=== PATIENT | male | born 1935 | race Caucasian/White ===

== ENCOUNTER 2017-04-22 04:51 | Inpatient (IN) | payer OTHER ==
[2017-03-30 10:18] VITALS: BMI 23.0
--- NOTE | 2017-03-30 11:08 | PAT Medication Instructions ---
Service Date Mar 30, 2017. Current Home Medication List Amlodipine (Norvasc), 5 MG PO QAM Aspirin (Aspirin Ec), 81 MG PO QAM Atorvastatin (Lipitor), 40 MG PO HS Carvedilol (Coreg), 25 MG PO BID Clopidogrel (Plavix), 75 MG PO HS Doxazosin Mesylate (Cardura), 1 TAB PO HS Polysaccharide Iron Complex (Ferrex 150), 150 MG PO HS [Folic Acid], 400 MCG PO QAM [Levothyroxine], 1 TAB PO QAM Medication Instructions For Your Scheduled Surgery - Check with surgeon/airplane cabin attendant/vascular for instructions (in order for spinal anesthesia, need to be off plavix 7 days prior to surgery; please check with airplane cabin attendant/vascular for instructions) Clopidogrel (Plavix), 75 MG PO HS - Hold the following medications the morning of surgery: [Folic Acid], 400 MCG PO QAM - Take the following medications the morning of surgery with a sip of water: [Levothyroxine], 1 TAB PO QAM Carvedilol (Coreg), 25 MG PO BID Amlodipine (Norvasc), 5 MG PO QAM Aspirin (Aspirin Ec), 81 MG PO QAM (okay to continue per surgeon) - Take the following medications as scheduled the night before surgery: Doxazosin Mesylate (Cardura), 1 TAB PO HS Polysaccharide Iron Complex (Ferrex 150), 150 MG PO HS Atorvastatin (Lipitor), 40 MG PO HS Carvedilol (Coreg), 25 MG PO BID If you have any questions please call us at [phone] or [phone] or [phone]
--- NOTE | 2017-03-30 11:51 | DIAGNOSTIC IMAGING REPORT ---
CHEST PREADMISSION(PA/LAT) CLINICAL HISTORY: Preoperative evaluation. COMPARISON STUDY: Chest radiograph July 14, 2006. FINDINGS: A dual lead left subclavian pacemaker is in place. There are median sternotomy wires. Cardiac size is normal. There is no evidence of pulmonary edema. There is no pneumothorax or pleural effusion. An 8 mm nodular density projects over the right lower lung. This was not evident on prior exam. Lower lung interstitial thickening is most evident within the left lower lung. There is a possible 1.4 cm right lower lung nodule. This may be artifactual. There is suspected underlying emphysema with mild lung hyperexpansion. Aortic endovascular stent graft is noted on lateral projection. IMPRESSION: 1. No acute cardiopulmonary findings. 2. A few equivocal right lung nodules. A follow-up nonemergent chest CT is recommended to determine whether these are artifactual or reflect pulmonary nodules. 3. Suspected underlying emphysema and possible interstitial lung disease. Electronically signed by: Shiraz Hernandez M.D. 03/30/2017 11:50 AM Dictated Date/Time: 03/30/2017 11:45 AM
[2017-03-30 12:04] LABS: COMPLETE YES; EOS % 2.1 %; HEMATOCRIT 33.2 % (42-52); IG% 0.5 %; LYMPH % 20.7 %; LYMPH ABS # 0.89 K/uL (1.2-3.4); MEAN CELL VOLUME 89.7 fL (80-100); MEAN CORPUSCULAR HEMOGLOBIN 28.9 pg (25-34); MEAN CORPUSCULAR HGB CONC 32.2 g/dl (32-36); MEAN PLATELET VOLUME 8.7 fL (7.4-10.4); MONO % 5.3 %; NEUT % 71.4 %; PLATELET COUNT 164 K/uL (130-400)
[2017-03-30 12:13] LABS: INR 1.1 (0.9-1.1); PARTIAL THROMBOPLASTIN RATIO 1.1; PROTHROMBIN TIME (PATIENT) 11.3 SECONDS (9.0-12.0)
[2017-03-30 12:34] LABS: CALCIUM 8.7 mg/dl (8.5-10.1); CREATININE 1.4 mg/dl (0.60-1.40); POTASSIUM 4.5 mmol/L (3.5-5.1)
[2017-03-30 12:37] LABS: ESTIMATED AVERAGE GLUCOSE 114 mg/dl; HA1C FLAG Normal (Normal)
[2017-03-30 13:55] LABS: URINE APPEARANCE CLEAR (CLEAR); URINE BILIRUBIN NEG (NEG); URINE COLOR DK YELLOW; URINE NITRITE NEG (NEG); URINE PH 5.5 (4.5-7.5); URINE SPECIFIC GRAVITY 1.023 (1.000-1.030); UROBILINOGEN NEG (NEG)
[2017-03-30 14:07] LABS: MANUAL MICROSCOPIC REQUIRED? NO; REVIEW REQ? NO
--- NOTE | 2017-03-30 18:22 | HISTORY & PHYSICAL EXAMINATION ---
DATE OF ADMISSION: 04/22/2017 PROCEDURE: Left knee replacement. HISTORY OF PRESENT ILLNESS: The patient is an 82-year-old male who presents for preoperative evaluation prior to left knee replacement. He states he is having pain in this knee for several years now which gradually worsened, it has now gone to the point where is affecting his daily activities including walking, standing, going up and down steps. He has tried previous cortisone injection with minimal relief. He also ambulates with a cane and/or a walker at times, he has done physical therapy without relief. At this point in time, he has failed conservative measures and would like to proceed with a left knee replacement. He had right knee replaced approximately 8 years ago and is doing well. PAST MEDICAL HISTORY: 1. Coronary artery disease with his last catheterization in November 2015 at [facility] showing CAD and subsequently sent for bypass surgery. He has since been seen and evaluated by his laborer high density press and has been cleared for upcoming surgery. 2. Carotid artery stenosis status post carotid endarterectomy. 3. Has a history of a pacemaker. 4. BPH. 5. History of basal cell carcinoma of the scalp and nose. 6. Abdominal aneurysm. 7. COPD. 8. Hypertension. 9. GERD. 10. High cholesterol. 11. History of renal insufficiency. ALLERGIES: No known drug allergies. CURRENT MEDICATIONS: 1. Amlodipine 5 mg daily. 2. Aspirin 81 mg daily. 3. Lipitor 40 mg daily. 4. Plavix 75 mg daily. 5. Cardura 2 mg daily. 6. Folic acid 400 mcg daily. 7. Iron 65 mg daily. PAST SURGICAL HISTORY: As outlined above. FAMILY HISTORY: 1. Siblings with heart disease. 2. History of stroke. 3. Emphysema, biological father. 4. Skin cancer, mother. SOCIAL HISTORY: The patient is retired and lives in a 1-lupe home with his . REVIEW OF SYSTEMS: Otherwise negative. Please see HPI for pertinent positives. PHYSICAL EXAMINATION: GENERAL: Pleasant 82-year-old male in no acute distress, alert and oriented x3. VITAL SIGNS: Blood pressure is 100/60, pulse 62, weight is 170 pounds, and height is 5 foot 11-1/2 inches. HEENT: Normocephalic, atraumatic. CARDIAC: Normal rate and rhythm. LUNGS: Clear to auscultation without rales or wheeze. ABDOMEN: Soft, nontender. Bowel sounds present. EXTREMITIES: Left lower extremity neurovascularly intact. Calves are soft and nontender. DP pulse +2. Demonstrates good quad tone. Straight leg raise without lag. There is no erythema or warmth. Overall has varus alignment. Positive crepitation with motion, range of motion is 0/5/110. Knee is otherwise ligamentously stable. IMAGING: Reviewed of the left knee shows findings consistent with end-stage DJD, has complete loss of joint space of the medial compartment with bone on bone changes including subchondral sclerosis and osteophyte formation noted, moderate chondrocalcinosis of the lateral compartment. IMPRESSION: 1. Left knee degenerative joint disease. 2. Past medical history as outlined above. In particular, his cardiac status per his laborer high density press is stable and no ongoing clinical anginal symptoms and has a preserved left ventricular systolic function and is being considered low risk for a left total knee replacement. PLAN: We will resume his Plavix postoperatively along with aspirin. Would like to be discharged home with home health therapy followed by outpatient therapy. Will also obtain clearance from his physician in [place] who is monitoring his abdominal aneurysm. The patient otherwise has no other questions or concerns. NIURKA
[2017-04-22] VITALS (12 sets, daily range): BP systolic 97–127; BP diastolic 61–78; PULSE 59–72; TEMP 36.4–37.2; O2SAT 84–99; Ht 180.3 cm; Wt 77.2 kg
[~2017-04-22] VITALS: Ht 180.3 cm; Wt 77.2 kg
[~2017-04-22 04:51] MED LIST: AMLO-110 PO; ASPI81TA28 PO; ATOR-24 PO; CARV25TA2 PO; CLOP1TAB15 PO; DOXA2TAB PO; FOLIC ACID PO; LEVOTHYROXINE PO; POLY150C4 PO
[2017-04-22] MEDS ORDERED: LACTATED RINGER'S 1000ML 500 ML IV ONE (06:00)
[2017-04-22] MEDS ORDERED: LACTATED RINGER'S 1000ML 1,000 ML IV SCH (06:00)
[2017-04-22] MEDS ORDERED: GABAPENTIN 300 MG CAP PO SCH (06:00)
[2017-04-22] MEDS ORDERED: CeleBREX 200 MG CAP PO SCH (06:00)
[2017-04-22] MEDS ORDERED: LACTATED RINGER'S 1000ML IV SCH (06:00)
[2017-04-22] MEDS ORDERED: ACETAMINOPHEN 500 MG TAB PO SCH (06:00)
[2017-04-22] MEDS ORDERED: DEXAMETHASONE 4 MG TAB PO SCH (06:00)
[2017-04-22] MEDS ORDERED: CEFAZOLIN 2000 MG/60 ML D5W 60 ML IV SCH (06:00)
[2017-04-22] MEDS ORDERED: ROPIVACAINE 5MG/ML 30 ML 150 MG, BUPIVACAINE/EPINEPHR 0.5% MPF 30 ML, KETOROLAC TROMETH... INFIL SCH ×7 (06:00)
[2017-04-22] MEDS ORDERED: FAMOTIDINE 20 MG TAB PO SCH (06:00)
[2017-04-22] MEDS ORDERED: METOCLOPRAMIDE HCL 10 MG TAB PO SCH (06:00)
[2017-04-22] MEDS ORDERED: LEVO25TA5 PO (06:01)
[2017-04-22] MEDS ORDERED: BUPIVACAINE 0.5 % 5 MG/1 ML PF 10ML VIAL ONE (06:24)
[2017-04-22] MEDS ORDERED: BUPIVACAINE 0.25% 30 ML VIAL ONE (06:24)
[2017-04-22] MEDS ORDERED: ORTHO JOINT ANESTHETIC ONE (06:33)
[2017-04-22] MEDS ORDERED: POVIDONE-IODINE OP SOLN 30 ML BTL ONE (06:33)
[2017-04-22] MEDS ORDERED: BACITRACIN 50000 UNIT VIAL ONE (06:33)
[2017-04-22] MEDS ORDERED: MIDAZOLAM HCL 1 MG/ML 2ML VIAL ONE (06:53)
[2017-04-22] MEDS ORDERED: FENTANYL CITRATE INJ 50 MCG/1 ML 2 ML VIAL ONE ×2 (06:53→08:30)
--- NOTE | 2017-04-22 06:58 | History & Physical Bridge Note ---
H&P Re-Evaluation Bridge Note: I have examined the patient, reviewed the History & Physical and in the interval since the performance of the History & Physical I have noted the following changes of clinical significance: No changes noted
[2017-04-22] MEDS ORDERED: ATROPINE SULFATE 0.1 MG/ML 5ML SYR IV PRN (07:45)
[2017-04-22] MEDS ORDERED: ONDANSETRON INJ 2 MG/ML 2 ML VIAL IV PRN ×2 (07:45→09:00)
[2017-04-22] MEDS ORDERED: FENTANYL CITRATE INJ 50 MCG/1 ML 2 ML VIAL IV PRN (07:45)
[2017-04-22] MEDS ORDERED: EpHEDrine SULFATE INJ 50 MG/ML AMP IV PRN (07:45)
[2017-04-22] MEDS ORDERED: PHENYLEPHRINE 100MCG/ML 5ML SYR ONE (08:03)
--- NOTE | 2017-04-22 08:13 | [facility] Operative Report ---
Operative Report Operative Date Apr 22, 2017. Pre-Operative Diagnosis Left Knee Degenerative Joint Disease Post-Operative Diagnosis Left Knee Degenerative Joint Disease Procedure(s) Performed Left Total Knee Arthroplasty utilizing Marquez [employer] Nephew journey 2 nonlocked total knee arthroplasty size 6 femur 6 tibia 11 Татьяна 32 oval patella Surgeon Bryce Jig And Fixture Repairer Surgeon(s) Vimal Resendez PA-C Estimated Blood Loss 5cc Findings Severe end-stage DJD with varus alignment left knee Nourse wants to conservative therapy Specimens A: Left Knee Bone and Tissue Complication(s) None Disposition Recovery Room / PACU Indications Patient been Nourse wants to conservative therapy is severe end-stage 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 with [id number] changes is failed conservative management presents today for left total knee arthroplastyAfter proper prepping and draping of the left lower extremity anterior midline incision was made over the region of the extensor extensor mechanism after meticulous hemostasis was obtained and maintained in subcutaneous tissues a medial parapatellar incision was made The patella was subluxed lateralward the medial lateral gutter were cleaned from any hypertrophic synovitis and scar tissue of the distal femoral block was placed and the distal femoral osteotomy cut was made subsequently the chamfers anterior and posterior osteotomy cuts were made utilizing the 4-in-1 block the tibia was subsequently subluxed anteriorward medial and ateral meniscal remnants were excised in their entirety remnants of the anterior and posterior cruciate ligaments were excised in their entirety excellent exposure of the proximal tibia was obtained the tibial osteotomy guide was placed on the proximal tibial osteotomy cut was made once again the knee was irrigated with copious amounts of sterile saline solution the patella was subsequently everted lateralward thickened scar tissue around the patella was removed the patella was subsequently cut utilizing a freehand technique and was drilled prepared for final preparation and placement of patella socially flexion-extension gaps were checked and the equal and symmetric trials were placed to the appropriate femoral and tibial trials with poly-spacer being placed for equal flexion and extension gaps and full range of motion including extension to 0 and flexion to 140 the trial components after having been taken to recovery range of motion was subsequently removed meticulous hemostasis was obtained and maintained subsequently a knee block injection of joint cocktail including ropivacaine 0.5 % 150 mg. Bupivacaine 0.5% epinephrine 1-200,030 mL's toradol 30 mg dexamethasone 4 mg ketamine 10 mg clonidine 100 micrograms normal saline solution 30 mg was infiltrated into the soft tissues of the posterior knee medial lateral gutters and periosteal synovium special attention was paid to protect neurovascular structures at all times subsequently trial components having been removed the knee was irrigated with sterile saline solution. debris was removed the proximal tibia was subsequently prepared and was made ready for the placement of the tibial component tibial component was also cemented and tamped into position the femoral component was subsequently placed and cemented in the position the patellar component was subsequently cemented in position because hemostasis once again obtained and maintained wound having been thoroughly irrigated with debridement and debridement lavage was performed as well as a medial parapatellar incision closed with #1 Vicryl in interrupted fashion subcutaneous was closed with #2 Vicryl skin was closed with skin clips. PA-C was necessary for prepping and drapping as well as wound closure of deep fascia Sub cutaneous tissue and skin and was necessary for the case. A sterile compressive dressing was placed patient was taken to recovery in stable condition of report dictated by Byrce I attest to the content of the Intraoperative Record and any orders documented therein. Any exceptions are noted below. I attest to the content of the Intraoperative Record and any orders documented therein. Any exceptions are noted below.
[2017-04-22] MEDS ORDERED: SOD PHOSPHATE/SOD BIPHOSPHATE ENEMA 132 ML BTL PR PRN (09:00)
[2017-04-22] MEDS ORDERED: ALUMINUM/MAGNESIUM/SIMETH (MAALOX MAX) 30 ML UDC PO PRN (09:00)
[2017-04-22] MEDS ORDERED: BISACODYL 10 MG SUPP PR PRN (09:00)
[2017-04-22] MEDS ORDERED: MAGNESIUM HYDROXIDE SUSP 30 ML UDC PO PRN (09:00)
[2017-04-22] MEDS ORDERED: MoRPHine SULFATE 2 MG/ML CARP IV PRN (09:00)
--- NOTE | 2017-04-22 09:40 | DIAGNOSTIC IMAGING REPORT ---
LEFT KNEE 2 VIEWS History: Left total knee arthroplasty. Degenerative arthritis. Postop. FINDINGS: The patient is status post a left total knee arthroplasty. The hardware is intact. No fracture or dislocation. Surgical drains are in place. IMPRESSION: Left total knee arthroplasty. No evidence for hardware complication. Electronically signed by: Clayton Tomlin M.D. 04/22/2017 9:38 AM Dictated Date/Time: 04/22/2017 9:37 AM
--- NOTE | 2017-04-22 10:38 | Anesthesiology Progress Note ---
Anesthesia Post Op Note Date & Time Apr 22, 2017 at 10:37 Vital Signs Pain Intensity: 0 Vital Signs Past 12 Hours Date Time Temp Pulse Resp B/P (MAP) Pulse Ox O2 Delivery O2 Flow Rate FiO2 04/22/17 10:32 61 12 04/22/17 10:32 61 12 96 04/22/17 10:31 96/63 04/22/17 10:27 62 12 04/22/17 10:27 61 12 94 04/22/17 10:26 93/58 04/22/17 10:22 64 13 94 04/22/17 10:22 63 13 04/22/17 10:21 101/59 04/22/17 10:17 62 12 04/22/17 10:17 63 12 95 04/22/17 10:16 61 12 04/22/17 10:16 61 12 105/62 91 04/22/17 10:11 60 13 04/22/17 10:11 60 13 103/63 96 04/22/17 10:06 70 04/22/17 10:06 70 20 106/58 91 04/22/17 10:01 63 20 104/60 92 04/22/17 10:01 65 04/22/17 09:56 68 04/22/17 09:56 68 20 101/59 96 04/22/17 09:51 65 17 04/22/17 09:51 66 17 111/59 90 04/22/17 09:50 36.8 04/22/17 09:46 87/58 04/22/17 09:45 60 20 04/22/17 09:45 59 20 95 04/22/17 09:41 103/54 04/22/17 09:40 62 22 04/22/17 09:40 62 22 95 04/22/17 09:36 101/58 04/22/17 09:35 62 19 95 04/22/17 09:35 62 19 04/22/17 09:31 102/64 04/22/17 09:30 63 22 04/22/17 09:30 62 22 98 04/22/17 09:26 109/58 04/22/17 09:25 65 23 04/22/17 09:25 65 23 95 04/22/17 09:21 103/62 04/22/17 09:20 Nasal Cannula 3 04/22/17 09:20 63 21 94 04/22/17 09:20 62 21 04/22/17 09:16 100/60 04/22/17 09:15 61 21 96 04/22/17 09:15 62 21 04/22/17 09:11 110/59 04/22/17 09:10 64 23 04/22/17 09:10 64 23 97 04/22/17 09:06 101/59 04/22/17 09:05 63 16 04/22/17 09:05 63 16 96 04/22/17 09:01 118/63 04/22/17 09:00 65 20 97 04/22/17 09:00 64 04/22/17 08:59 110/61 04/22/17 08:50 36.5 62 14 107/60 95 Oxymask 10 04/22/17 05:45 36.5 66 18 123/75 95 Room Air Notes Mental Status: alert / awake / arousable, participated in evaluation Pt Amnestic to Procedure: Yes Nausea / Vomiting: adequately controlled Pain: adequately controlled Airway Patency, RR, SpO2: stable & adequate BP & HR: stable & adequate Hydration State: stable & adequate Neuraxial Anesthesia: was administered, sensory block is resolving Anesthetic Complications: no major complications apparent
[2017-04-22] MEDS ORDERED: MoRPHine SULFATE 4 MG/ML 1 ML CARP\\VIAL IV PRN (11:15)
[2017-04-22] MEDS ORDERED: MoRPHine SULFATE 10 MG/ML CARP/VIAL IV PRN (11:15)
[2017-04-22] MEDS: D5W AND 1/2NSS + 20MEQ KCL 1,000 ML IV SCH ×2 (11:28→20:43)
[2017-04-22] MEDS: CARVEDILOL 25 MG TAB PO SCH ×2 (11:29→20:56)
[2017-04-22] MEDS: OXYCODONE HCL 10 MG TABCR (OXYCONTIN) PO SCH ×2 (11:36→20:51)
[2017-04-22] MEDS: MULTIVITAMIN TAB PO SCH (11:36)
[2017-04-22] MEDS: PANTOprazole SOD 40 MG TAB PO SCH (11:37)
[2017-04-22] MEDS: FoLIC ACID TAB 400 MCG TAB PO SCH (11:37)
[2017-04-22] MEDS: DOCUSATE SODIUM 100 MG CAP PO SCH ×2 (11:37→20:56)
[2017-04-22] MEDS: ASPIRIN 81 MG ECTAB PO SCH ×2 (11:37→20:56)
--- NOTE | 2017-04-22 13:30 | Cardiology Consultation ---
Cardiology Consultation Date of Consultation: Apr 22, 2017. Requesting Physician: Dr. Wu Reason for Consultation: Pacemaker, coronary artery disease Pt evaluation today including: conversation w/ patient, physical exam, lab review, review of studies, review of inpatient medication list History of Present Illness This is a very pleasant 82-year-old gentleman who has a history of heart block ( according to him, I don't have much in way of records) for which she required a pacemaker around 2004. He describes that as being 2-1 heart block. He had the pacemaker replaced several years ago, he doesn't remember exactly when. He has had no difficulty with it. He also has a history of coronary artery disease, he does not recall having any symptoms prior to a recommendation to have a nuclear stress test done which showed significant disease and he went on to have catheterization followed by coronary bypass surgery in December 2015. He denies having angina at that time and has had none since. He also has carotid disease and has had a carotid endarterectomy. He is admitted now following left knee replacement. He is in bed but has no complaints of chest discomfort, shortness of breath or palpitations. He has minimal knee discomfort. Prior to surgery he was maintained on aspirin and clopidogrel, as well as atorvastatin and some other medications for hypertension. Past Medical/Surgical History Hypertension Hyperlipidemia Carotid disease Coronary artery disease AV block DJD History of carotid surgery History of pacemaker implantation History of bypass surgery Social History Smoking Status: Former Smoker History of Alcohol Use: No Review of Systems Constitutional: No fever, No weight loss, No weakness Respiratory: No cough, No wheezing, No shortness of breath, No dyspnea on exertion Cardiac: No chest pain, No orthopnea, No PND, No edema, No palpitations Abdomen: No pain, No nausea, No vomiting, No diarrhea, No GI bleeding Male : No urinary frequency, No nocturia more than once/night, No slowing stream, No sexual dysfunction Neurologic: No paralysis, No weakness, No numbness/tingling, No balance problems Heme: No abnormal bleeding/bruising, No clotting problems Endo: No fatigue Skin: No problem reported Minimal knee pain post surgery All Other Systems: Reviewed and Negative Allergies Coded Allergies: No Known Allergies (Verified , 04/22/17) Medications Current Inpatient Medications Medications (Trade) Dose Ordered Sig/Estephania Route Start Time Stop Time Status Last Admin Dose Admin Lactated Ringer's 1,000 ml @ 15 mls/hr Q24H IV 04/22/17 06:00 04/23/17 05:59 04/22/17 05:59 15 MLS/HR Lactated Ringer's 1,000 ml @ 60 mls/hr [id number] IV 04/22/17 06:00 04/22/17 22:39 Cefazolin Sodium 60 ml @ 100 mls/hr PREOP IV 04/22/17 06:00 04/22/17 18:00 04/22/17 07:05 100 MLS/HR Acetaminophen (Tylenol Tab) 1,000 mg PREOP PO 04/22/17 06:00 04/22/17 18:00 04/22/17 06:11 1,000 MG Celecoxib (CeleBREX CAP) 200 mg PREOP PO 04/22/17 06:00 04/22/17 18:00 04/22/17 06:10 200 MG Dexamethasone (Decadron Tab) 8 mg PREOP PO 04/22/17 06:00 04/22/17 18:00 04/22/17 06:10 8 MG Famotidine (Pepcid Tab) 20 mg PREOP PO 04/22/17 06:00 04/22/17 18:00 04/22/17 06:10 20 MG Gabapentin (Neurontin Cap) 300 mg PREOP PO 04/22/17 06:00 04/22/17 18:00 04/22/17 06:10 300 MG Metoclopramide HCl (Reglan Tab) 10 mg PREOP PO 04/22/17 06:00 04/22/17 18:00 04/22/17 06:10 10 MG Potassium Chloride/Dextrose/ Sod Cl 1,000 ml @ 100 mls/hr Q10H IV 04/22/17 11:15 04/23/17 11:14 04/22/17 11:28 100 MLS/HR Cefazolin Sodium 2000 mg/Dextrose 60 ml @ 100 mls/hr Q8H IV 04/22/17 16:00 04/23/17 00:35 Oxycodone HCl (Roxicodone Immediate Rel Tab) 1 TABLET FOR PAIN RATING... Q4H PRN PO 04/22/17 09:00 05/06/17 08:59 Oxycodone HCl (Oxycontin Tab) 10 mg Q12 PO 04/22/17 09:00 05/06/17 08:59 Acetaminophen (Tylenol Tab) 1,000 mg Q8H PO 04/22/17 16:00 05/22/17 15:59 Magnesium Hydroxide (Milk Of Magnesia Susp) 30 ml Q6H PRN PO 04/22/17 09:00 05/22/17 08:59 Bisacodyl (Dulcolax Supp) 10 mg DAILY PRN AK 04/22/17 09:00 05/22/17 08:59 Sodium Biphosphate/ Sodium Phosphate (Fleet Enema) 132 ml DAILY PRN AK 04/22/17 09:00 05/22/17 08:59 Senna (Senokot Tab) 17.2 mg HS PO 04/22/17 21:00 05/22/17 20:59 Docusate Sodium (coLACE CAP) 100 mg BID PO 04/22/17 09:00 05/22/17 08:59 Diphenhydramine HCl (Benadryl Cap) 25 mg Q8H PRN PO 04/22/17 09:00 05/22/17 08:59 Al Hydrox/Mg Hydrox/Simethicone (Maalox Max Susp) 15 ml Q4H PRN PO 04/22/17 09:00 05/22/17 08:59 Multivitamins (Multivitamin Tab) 1 tab QAM PO 04/22/17 09:00 05/22/17 08:59 Ondansetron HCl (Zofran Inj) 4 mg Q6H PRN IV 04/22/17 09:00 05/22/17 08:59 Pantoprazole Sodium (Protonix Tab) 40 mg QAM PO 04/22/17 09:00 05/22/17 08:59 Aspirin (Ecotrin Tab) 81 mg BID PO 04/22/17 09:00 05/22/17 08:59 Atorvastatin Calcium (Lipitor Tab) 40 mg HS PO 04/22/17 21:00 05/22/17 20:59 Carvedilol (Coreg Tab) 25 mg BID PO 04/22/17 09:00 05/22/17 08:59 Clopidogrel Bisulfate (plAVix TAB) 75 mg HS PO 04/23/17 21:00 05/23/17 20:59 Doxazosin Mesylate (Cardura Tab) 2 mg HS PO 04/22/17 21:00 05/22/17 20:59 Levothyroxine Sodium (Synthroid Tab) 25 mcg DAILYBB PO 04/23/17 06:00 05/23/17 05:59 Polysaccharide Iron Complex (Niferex-150 w/ Vit C Cap) 150 mg HS PO 04/22/17 21:00 05/22/17 20:59 Folic Acid (Folvite Tab) 400 mcg QAM PO 04/22/17 09:00 05/22/17 08:59 Morphine Sulfate (MoRPHine SULFATE INJ) 2 mg Q4HWA PRN IV 04/22/17 09:00 05/06/17 08:59 Morphine Sulfate (MoRPHine SULFATE INJ) 4 mg Q4HWA PRN IV 04/22/17 11:15 05/06/17 11:14 Morphine Sulfate (MoRPHine SULFATE INJ) 6 mg Q4HWA PRN IV 04/22/17 11:15 05/06/17 11:14 Physical Exam Vital Signs Past 12 Hours Date Time Temp Pulse Resp B/P (MAP) Pulse Ox O2 Delivery O2 Flow Rate FiO2 04/22/17 12:40 36.4 64 18 120/72 (88) 98 2.0 04/22/17 11:38 37.0 63 16 125/72 (89) 98 Nasal Cannula 3.0 04/22/17 11:10 59 18 123/69 (87) 99 2.0 04/22/17 10:40 Nasal Cannula 3.0 04/22/17 10:40 37.1 63 18 120/70 (87) 95 Nasal Cannula 3.0 04/22/17 10:40 Nasal Cannula 3.0 04/22/17 10:32 61 12 04/22/17 10:32 61 12 96 04/22/17 10:31 96/63 04/22/17 10:27 62 12 04/22/17 10:27 61 12 94 04/22/17 10:26 93/58 04/22/17 10:22 64 13 94 04/22/17 10:22 63 13 04/22/17 10:21 101/59 04/22/17 10:17 62 12 04/22/17 10:17 63 12 95 04/22/17 10:16 61 12 04/22/17 10:16 61 12 105/62 91 04/22/17 10:11 60 13 04/22/17 10:11 60 13 103/63 96 04/22/17 10:06 70 04/22/17 10:06 70 20 106/58 91 04/22/17 10:01 63 20 104/60 92 04/22/17 10:01 65 04/22/17 09:56 68 04/22/17 09:56 68 20 101/59 96 04/22/17 09:51 65 17 04/22/17 09:51 66 17 111/59 90 04/22/17 09:50 36.8 04/22/17 09:46 87/58 04/22/17 09:45 60 20 04/22/17 09:45 59 20 95 04/22/17 09:41 103/54 04/22/17 09:40 62 22 04/22/17 09:40 62 22 95 04/22/17 09:36 101/58 04/22/17 09:35 62 19 95 04/22/17 09:35 62 19 04/22/17 09:31 102/64 04/22/17 09:30 63 22 04/22/17 09:30 62 22 98 04/22/17 09:26 109/58 04/22/17 09:25 65 23 04/22/17 09:25 65 23 95 04/22/17 09:21 103/62 04/22/17 09:20 Nasal Cannula 3 04/22/17 09:20 63 21 94 04/22/17 09:20 62 21 04/22/17 09:16 100/60 04/22/17 09:15 61 21 96 04/22/17 09:15 62 21 04/22/17 09:11 110/59 04/22/17 09:10 64 23 04/22/17 09:10 64 23 97 04/22/17 09:06 101/59 04/22/17 09:05 63 16 04/22/17 09:05 63 16 96 04/22/17 09:01 118/63 04/22/17 09:00 65 20 97 04/22/17 09:00 64 04/22/17 08:59 110/61 04/22/17 08:50 36.5 62 14 107/60 95 Oxymask 10 04/22/17 05:45 36.5 66 18 123/75 95 Room Air Constitutional: General Apperance: heathly-appearing Level of Distress: NAD Psychiatric: Mental Status: active & alert Head: normocephalic Eyes: EOM: EOMI ENMT: normal ENT inspection, hearing grossly normal Neck: supple, no masses Lungs: Respiratory effort: no dyspnea, good air movement Auscultation: breath sounds normal, no wheezing Cardiovascular: Heart Auscultation: RRR, no murmurs, no rubs, no gallops Peripheral Pulses: Bruits: none appreciated Abdomen: Bowel Sounds: normal Inspection & Palpation: soft, no tenderness, guarding & rebound, no masses Musculoskeletal: normal strength (5/5 throughout) Extremities: no edema Neurologic: Cranial Nerves: grossly intact Sensation: grossly intact The left knee is immobilized following surgery Data EKG: None in records, ordered Assessment & Plan #1. Coronary disease: By history he has coronary disease with bypass surgery a little over one year ago, he denies symptoms prior to bypass surgery. He has had no anginal symptoms postoperatively. There is no evidence that he is having problems with myocardial ischemia, I am going to get an electrocardiogram although it may not be helpful if he is pacing. I don't know how often he paces so it may be useful. I would not consider any further cardiac evaluation at this time. He is on aspirin and Plavix postoperatively and I would continue them as well as the atorvastatin. #2. Heart block and pacemaker: By his history he had a pacemaker implanted for heart block, that was replaced once already but on recent evaluation he reports that he had good battery life remaining. I'm going to get an electrocardiogram, there is on it appeared to be any reason to interrogate the pacemaker. Thank you for allowing me to participate in his care.
[2017-04-22] MEDS: OXYCODONE HCL IR 5 MG TAB (IMMEDIATE RELEASE) PO PRN (13:38)
[2017-04-22] MEDS: CEFAZOLIN IV 2,000 MG in DEXTROSE 5% 50ML 50 ML IV SCH ×2 (16:42→23:54)
[2017-04-22] MEDS: ACETAMINOPHEN 500 MG TAB PO SCH ×2 (16:43→23:54)
[2017-04-22] MEDS: DOXAZosin MESYLATE TAB 2 MG TAB PO SCH (20:55)
[2017-04-22] MEDS: ATORVASTATIN 20 MG TAB PO SCH (20:56)
[2017-04-22] MEDS: SENNA 8.6 MG TAB PO SCH (20:57)
[2017-04-22] MEDS: IRON COMPLEX POLYSACCHARIDE W/VIT C 150 MG CAP PO SCH (20:57)
[2017-04-23] VITALS (21 sets, daily range): BP systolic 115–160; BP diastolic 63–85; PULSE 58–73; TEMP 36.3–37; O2SAT 92–98
[2017-04-23] MEDS: LEVOTHYROXINE 25 MCG TAB PO SCH (05:52)
[2017-04-23 06:16] LABS: HEMATOCRIT 24.2 % (42-52); MEAN CORPUSCULAR HEMOGLOBIN 28.4 pg (25-34); MEAN CORPUSCULAR HGB CONC 32.2 g/dl (32-36); MEAN PLATELET VOLUME 8.2 fL (7.4-10.4); PLATELET COUNT 119 K/uL (130-400); RED BLOOD COUNT 2.75 M/uL (4.7-6.1); WHITE BLOOD COUNT 7.65 K/uL (4.8-10.8)
[2017-04-23] MEDS: D5W AND 1/2NSS + 20MEQ KCL 1,000 ML IV SCH (06:37)
[2017-04-23 06:43] LABS: INR 1.1 (0.9-1.1)
[2017-04-23 06:53] LABS: BUN/CREATININE RATIO 19.5 (10-20); CALCIUM 8.1 mg/dl (8.5-10.1); CREATININE 1.3 mg/dl (0.60-1.40); POTASSIUM 4.6 mmol/L (3.5-5.1)
[2017-04-23] MEDS: PANTOprazole SOD 40 MG TAB PO SCH (07:18)
[2017-04-23] MEDS: ACETAMINOPHEN 500 MG TAB PO SCH ×2 (07:20→16:26)
--- NOTE | 2017-04-23 09:00 | Orthopedic Progress Note ---
Orthopedic Progress Note Date of Service Apr 23, 2017. Subjective Post OP Day: 1 Reports: feeling well Objective N/V intact, dressing C/D/I (Hemovac in place), toes mobile Date Time Temp Pulse Resp B/P (MAP) Pulse Ox O2 Delivery O2 Flow Rate FiO2 04/23/17 06:58 36.5 58 16 131/75 (93) 97 Nasal Cannula 2.0 04/23/17 03:30 37.0 69 20 119/63 (81) 96 Nasal Cannula 2.0 04/22/17 23:50 Nasal Cannula 2.0 04/22/17 23:12 37.2 72 14 127/78 (94) 94 Nasal Cannula 2.0 04/22/17 20:55 61 122/76 (91) 04/22/17 19:55 36.5 64 18 97/61 (73) 94 Room Air 04/22/17 15:51 97 Nasal Cannula 2.0 04/22/17 15:50 84 Room Air 04/22/17 15:45 Nasal Cannula 3.0 04/22/17 15:45 36.5 63 16 117/61 (79) 96 Nasal Cannula 3.0 04/22/17 13:40 36.8 63 16 118/68 (85) 94 Nasal Cannula 3.0 04/22/17 12:40 36.4 64 18 120/72 (88) 98 2.0 04/22/17 11:38 37.0 63 16 125/72 (89) 98 Nasal Cannula 3.0 04/22/17 11:10 59 18 123/69 (87) 99 2.0 04/22/17 10:40 Nasal Cannula 3.0 04/22/17 10:40 37.1 63 18 120/70 (87) 95 Nasal Cannula 3.0 04/22/17 10:40 Nasal Cannula 3.0 04/22/17 10:32 61 12 04/22/17 10:32 61 12 96 04/22/17 10:31 96/63 04/22/17 10:27 62 12 04/22/17 10:27 61 12 94 04/22/17 10:26 93/58 04/22/17 10:22 64 13 94 04/22/17 10:22 63 13 04/22/17 10:21 101/59 04/22/17 10:17 62 12 04/22/17 10:17 63 12 95 04/22/17 10:16 61 12 04/22/17 10:16 61 12 105/62 91 04/22/17 10:11 60 13 04/22/17 10:11 60 13 103/63 96 04/22/17 10:06 70 04/22/17 10:06 70 20 106/58 91 04/22/17 10:01 63 20 104/60 92 04/22/17 10:01 65 04/22/17 09:56 68 04/22/17 09:56 68 20 101/59 96 04/22/17 09:51 65 17 04/22/17 09:51 66 17 111/59 90 04/22/17 09:50 36.8 04/22/17 09:46 87/58 04/22/17 09:45 60 20 04/22/17 09:45 59 20 95 04/22/17 09:41 103/54 04/22/17 09:40 62 22 04/22/17 09:40 62 22 95 04/22/17 09:36 101/58 04/22/17 09:35 62 19 95 04/22/17 09:35 62 19 04/22/17 09:31 102/64 04/22/17 09:30 63 22 04/22/17 09:30 62 22 98 04/22/17 09:26 109/58 04/22/17 09:25 65 23 04/22/17 09:25 65 23 95 04/22/17 09:21 103/62 04/22/17 09:20 Nasal Cannula 3 04/22/17 09:20 63 21 94 04/22/17 09:20 62 21 04/22/17 09:16 100/60 04/22/17 09:15 61 21 96 04/22/17 09:15 62 21 04/22/17 09:11 110/59 04/22/17 09:10 64 23 04/22/17 09:10 64 23 97 04/22/17 09:06 101/59 04/22/17 09:05 63 16 04/22/17 09:05 63 16 96 04/22/17 09:01 118/63 04/22/17 09:00 65 20 97 04/22/17 09:00 64 Laboratory Results 24 Hours: Test 04/23/17 05:57 Hematocrit 24.2 % Hemoglobin 7.8 g/dL Prothromb Time International Ratio 1.1 Prothrombin Time 12.0 SECONDS Assessment & Plan Assessment: 82 yo male stable POD #1 s/p left TKA, acute blood loss anemia Plan: 1. Med management- transfuse 2 units PRBCs 2. DVT prophylaxis- ASA, SCDs 3. PT/OT 4. D/C planning- home w/ HH
[2017-04-23] MEDS: DOCUSATE SODIUM 100 MG CAP PO SCH ×2 (09:21→21:28)
[2017-04-23] MEDS: ASPIRIN 81 MG ECTAB PO SCH ×2 (09:21→21:28)
[2017-04-23] MEDS: MULTIVITAMIN TAB PO SCH (09:21)
[2017-04-23] MEDS: FoLIC ACID TAB 400 MCG TAB PO SCH (09:22)
[2017-04-23] MEDS: CARVEDILOL 25 MG TAB PO SCH ×2 (09:25→21:27)
[2017-04-23] MEDS: OXYCODONE HCL 10 MG TABCR (OXYCONTIN) PO SCH ×2 (09:27→21:27)
[2017-04-23] MEDS: OXYCODONE HCL IR 5 MG TAB (IMMEDIATE RELEASE) PO PRN ×2 (09:28→16:26)
--- NOTE | 2017-04-23 12:06 | Discharge Instructions ---
Discharge Instructions Date of Service Apr 23, 2017. Admission Reason for Admission: Left Knee Degenerative Joint Disease Discharge Discharge Diagnosis / Problem: Left Total Knee Replacement Discharge Goals Goal(s): Decrease discomfort, Improve function, Increase independence Activity Recommendations Activity Limitations: as noted below Weightbearing Status: Left weightbearing (as tolerated) . Instructions / Follow-Up Instructions / Follow-Up ACTIVITY RECOMMENDATIONS: SELF CARE INSTRUCTIONS AFTER TOTAL KNEE REPLACEMENT A. You may need to continue a physical therapy program after discharge from the hospital. There are several options available to you. Your doctor will assist you in selecting the best one for you. 1. An out-patient facility 2 to 3 times a week for therapy or home therapy. 2. Continue working on all exercises taught to you in the hospital. Your goals should be to increase bending of your knee to 90 degrees and beyond and to fully straighten your knee. B. You may progress at your own pace from walking with a walker or crutches to a cane; then to no assistive devices. C. Make walking a part of your daily routine. Be up as much as comfortable with rest periods throughout the day. Rest with leg elevation is very important. Use the ice wrap frequently for the first 3-4 weeks. D. There are no restrictions on activities. 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 E. Wear the long elastic stockings (ROBY hose) 20 hours a day for 2 weeks after surgery. They can be removed several times a day for laundering and for a bath. F. You may shower, no tub baths until cleared by your doctor. SPECIAL CARE INSTRUCTIONS: VERY IMPORTANT TO READ AND REVIEW A. There are a few signs you need to watch for after you are home. Call [facility] if you notice any of the followin. Increased severe knee pain. Some pain is expected especially when you exercise. 2. Increased swelling in your leg or knee; pain or swelling of the calf muscle in either lower leg. 3. Any fluid drainage from the incision. 4. Shortness of breath or chest pain. B. Please call [facility] at if you have any concerns or questions about your operation or recovery. The doctor or his nurse will return your call promptly. C. You must take antibiotics before dental work, bladder, bowel or other surgery. Your doctor will provide you with a permanent care to carry describing this precaution. IMPORTANT: * REMEMBER TO TAKE ASPIRIN, 81 MG, TWICE DAILY FOR 4 WEEKS UNLESS OTHERWISE DIRECTED. THIS IS YOUR BLOOD THINNER. * HIGH RISK PATIENTS MAY BE PRESCRIBED A STRONGER BLOOD THINNER. THIS WILL BE PROVIDED AT DISCHARGE. * CALL IF INCREASED PAIN, REDNESS, DRAINAGE OR FEVER GREATER THAT 101. * WEAR ROBY HOSE 20 HOURS PER DAY FOR 2 WEEKS. * DERMABOND Prineo- This is a mesh tape dressing that is covered with glue. It should remain in place until the incision is properly healed, usually 10-14 days. This dressing is designed to naturally slough off. You may trim the excess mesh tape as it peels off. Incision may be briefly wet in a shower. Dry immediately by blotting with a clean, dry towel. Do not bath or swim until instructed by your doctor. Do not scratch, rub, or pick at the dressing. Do not apply any topical ointments or lotions until dressing is completely removed and/or instructed by your doctor. There may be a small piece of suture material at one end of your incision. Do not pull or trim this. If it is bothersome or catching on clothing, you may cover it with a band-aid. FOLLOW UP VISIT: If appointment is not already scheduled: Please call [facility] to make a follow-up appointment for 2 weeks after your surgery at . Current Hospital Diet Patient's current hospital diet: AHA Diet (Heart Healthy) Discharge Diet Recommended Diet: AHA Diet (Heart Healthy) Procedures Procedures Performed: Left Total Knee Arthroplasty utilizing [employer] journey 2 nonlocked total knee arthroplasty size 6 femur 6 tibia 11 Татьяна 32 oval patella Pending Studies Studies pending at discharge: no Laboratory Results Hemoglobin A1c Test 03/30/17 11:16 Range/Units Estimated Average Glucose 114 mg/dl Hemoglobin A1c 5.6 4.5-5.6 % Medical Emergencies . Who to Call and When: Medical Emergencies: If at any time you feel your situation is an emergency, please call 911 immediately. . Non-Emergent Contact Non-Emergency issues call your: Primary Care Provider, Surgeon . "Provider Documentation" section prepared by Vimal Resendez. . VTE Core Measure Inpt VTE Proph given/why not?: Other Anticoagulation (Plavix and ASA, resume normal home regimen), T.E.D. Stockings, SCD's [place] Drug Monitoring Program Search Results: patient reviewed within database, no issues identified
--- NOTE | 2017-04-23 13:06 | Anesthesiology Progress Note ---
Anesthesia Post Op Note Date & Time Apr 23, 2017 at 13:05 Vital Signs Pain Intensity: 4.0 Vital Signs Past 12 Hours Date Time Temp Pulse Resp B/P (MAP) Pulse Ox O2 Delivery O2 Flow Rate FiO2 04/23/17 13:00 36.9 70 20 145/80 98 2.0 04/23/17 12:00 36.4 62 18 138/65 97 2.0 04/23/17 11:30 36.4 63 18 127/74 96 2.0 04/23/17 11:00 36.4 60 20 146/73 04/23/17 10:46 36.4 60 18 121/66 04/23/17 10:29 36.5 65 20 132/75 04/23/17 09:23 63 137/74 (95) 04/23/17 09:22 98 04/23/17 07:15 Nasal Cannula 2.0 04/23/17 06:58 36.5 58 16 131/75 (93) 97 Nasal Cannula 2.0 04/23/17 03:30 37.0 69 20 119/63 (81) 96 Nasal Cannula 2.0 Notes Mental Status: alert / awake / arousable, participated in evaluation Pt Amnestic to Procedure: Yes Nausea / Vomiting: adequately controlled Pain: adequately controlled Airway Patency, RR, SpO2: stable & adequate BP & HR: stable & adequate Hydration State: stable & adequate Neuraxial Anesthesia: was administered, sensory block resolved Anesthetic Complications: no major complications apparent
[2017-04-23] MEDS ORDERED: CALCIUM CARBONATE 500 MG CHEWABLE PO PRN (13:15)
[2017-04-23] MEDS ORDERED: NURSING VERBAL MED ORDER ONE (13:15)
--- NOTE | 2017-04-23 16:32 | Cardiology Follow-Up ---
Subjective Date of Service: Apr 23, 2017. Pt evaluation today including: conversation w/ patient, physical exam, lab review, review of inpatient medication list History of Present Illness This is a very pleasant 82-year-old gentleman who has a history of heart block ( according to him, I don't have much in way of records) for which he required a pacemaker around 2004. He describes that as being 2-1 heart block. He had the pacemaker replaced several years ago, he doesn't remember exactly when. He has had no difficulty with it. He also has a history of coronary artery disease, he does not recall having any symptoms prior to a recommendation to have a nuclear stress test done which showed significant disease and he went on to have catheterization followed by coronary bypass surgery in December 2015. He denies having angina at that time and has had none since. He also has carotid disease and has had a carotid endarterectomy. He is admitted following left knee replacement. Prior to surgery he was maintained on aspirin and clopidogrel, as well as atorvastatin and some other medications for hypertension. These have been restarted. He is having some postoperative knee discomfort, especially with walking, but has been able to go to the bathroom. He was complaining of some shortness of breath with going to the bathroom but feels better now that he is receiving blood. No chest discomfort or palpitations. Social History Smoking Status: Former Smoker History of Alcohol Use: No Review of Systems Respiratory: No cough, No wheezing, No shortness of breath, No dyspnea on exertion Cardiac: No chest pain, No orthopnea, No PND, No edema, No palpitations Minimal knee pain post surgery Medications Cardiovascular: Item Value Date Time Clopidogrel 75 mg 04/23/17 2100 Bisulfate HS/PO (plAVix TAB) Atorvastatin 40 mg 04/22/17 2100 Calcium HS/PO 04/22/172055 (Lipitor Tab) Magnesium 30 ml 04/22/17 0900 Hydroxide Q6H PRN/PO (Milk Of Magnesia Susp) Aspirin 81 mg 04/22/17 0900 (Ecotrin Tab) BID/PO 04/23/17 09 Carvedilol 25 mg 04/22/17 0900 (Coreg Tab) BID/PO 04/23/17 0925 Objective Vital Signs Past 12 Hours Date Time Temp Pulse Resp B/P (MAP) Pulse Ox O2 Delivery O2 Flow Rate FiO2 04/23/17 15:25 36.3 66 18 139/80 94 2.0 04/23/17 14:26 136/68 (90) 04/23/17 14:25 36.5 68 19 115/68 04/23/17 13:55 36.5 65 17 132/68 04/23/17 13:40 36.4 69 18 135/79 96 04/23/17 13:26 36.6 70 20 153/85 04/23/17 13:00 36.9 70 20 145/80 98 2.0 04/23/17 12:00 36.4 62 18 138/65 97 2.0 04/23/17 11:30 36.4 63 18 127/74 96 2.0 04/23/17 11:00 36.4 60 20 146/73 04/23/17 10:46 36.4 60 18 121/66 04/23/17 10:29 36.5 65 20 132/75 04/23/17 09:23 63 137/74 (95) 04/23/17 09:22 98 04/23/17 07:15 Nasal Cannula 2.0 04/23/17 06:58 36.5 58 16 131/75 (93) 97 Nasal Cannula 2.0 Last Recorded Weight-Kilograms: 77.200 Intake & Output 8-Hour Column 04/23/17 04/24/17 04/24/17 16:00 00:00 08:00 Intake Total 660 ml Output Total 340 ml Balance 320 ml 24-Hour Column 04/24/17 08:00 Intake Total 660 ml Output Total 340 ml Balance 320 ml Physical Exam Constitutional: General Apperance: heathly-appearing Level of Distress: NAD Lungs: Respiratory effort: no dyspnea, good air movement Auscultation: breath sounds normal, no wheezing Cardiovascular: Heart Auscultation: RRR, no murmurs, no rubs, no gallops Peripheral Pulses: Bruits: none appreciated Extremities: no edema The left knee is immobilized following surgery Data Laboratory Results: Last 24 Hours Test 04/23/17 05:57 White Blood Count 7.65 K/uL Red Blood Count 2.75 M/uL Hemoglobin 7.8 g/dL Hematocrit 24.2 % Mean Corpuscular Volume 88.0 fL Mean Corpuscular Hemoglobin 28.4 pg Mean Corpuscular Hemoglobin Concent 32.2 g/dl RDW Standard Deviation 46.3 fL RDW Coefficient of Variation 14.2 % Platelet Count 119 K/uL Mean Platelet Volume 8.2 fL Prothrombin Time 12.0 SECONDS Prothromb Time International Ratio 1.1 Sodium Level 135 mmol/L Potassium Level 4.6 mmol/L Chloride Level 104 mmol/L Carbon Dioxide Level 25 mmol/L Anion Gap 6.0 mmol/L Blood Urea Nitrogen 25 mg/dl Creatinine 1.30 mg/dl Est Creatinine Clear Calc Drug Dose 47.4 ml/min Estimated GFR () 59.3 Estimated GFR (Non- 51.2 BUN/Creatinine Ratio 19.5 Random Glucose 128 mg/dl Calcium Level 8.1 mg/dl EKG: His electrocardiogram yesterday shows sinus rhythm with borderline first- degree AV block but intrinsic conduction, right bundle branch block. No evidence of pacing, which is probably normal operation. Assessment and Plan #1. Coronary disease: This appears to be clinically stable and he is not having angina. He has some shortness of breath by don't think that is an anginal equivalent, it is probably due to bed rest and anemia. We will continue to watch it. #2. Heart block and pacemaker: By his history he had a pacemaker implanted for heart block, that is probably intermittent as his electrocardiogram showed sinus rhythm with intact AV conduction but he did have right bundle branch block. From the cardiovascular standpoint he seems to be doing well. Thank you for allowing me to participate in his care.
[2017-04-23] MEDS ORDERED: CLOPIDOGREL BISULFATE 75 MG TAB PO SCH (21:00)
[2017-04-23] MEDS: DOXAZosin MESYLATE TAB 2 MG TAB PO SCH (21:27)
[2017-04-23] MEDS: SENNA 8.6 MG TAB PO SCH (21:28)
[2017-04-23] MEDS: ATORVASTATIN 20 MG TAB PO SCH (21:28)
[2017-04-23] MEDS: IRON COMPLEX POLYSACCHARIDE W/VIT C 150 MG CAP PO SCH (21:29)
[2017-04-24] MEDS: ACETAMINOPHEN 500 MG TAB PO SCH ×2 (00:08→08:09)
[2017-04-24] MEDS: LEVOTHYROXINE 25 MCG TAB PO SCH (05:33)
[2017-04-24 06:09] LABS: HEMATOCRIT 26.5 % (42-52); MEAN CELL VOLUME 88.3 fL (80-100); MEAN CORPUSCULAR HEMOGLOBIN 28.7 pg (25-34); MEAN CORPUSCULAR HGB CONC 32.5 g/dl (32-36); MEAN PLATELET VOLUME 8.5 fL (7.4-10.4); PLATELET COUNT 118 K/uL (130-400); WHITE BLOOD COUNT 4.72 K/uL (4.8-10.8)
[2017-04-24 06:45] LABS: BUN/CREATININE RATIO 21.4 (10-20); CALCIUM 8.5 mg/dl (8.5-10.1); CREATININE 1.1 mg/dl (0.60-1.40); POTASSIUM 4.5 mmol/L (3.5-5.1)
[2017-04-24 07:08] VITALS: BP 151/80; PULSE 71; TEMP 37.6; O2SAT 94
--- NOTE | 2017-04-24 07:50 | Orthopedic Progress Note ---
Orthopedic Progress Note Date of Service Apr 24, 2017. Subjective Post OP Day: 2 Reports: feeling well, pain controlled w PO medications, Denies: complaints, chest pain, SOB, nausea / vomiting, light headedness, calf pain Objective calves soft nontender, N/V intact, capillary refill less than 2 sec., incision C /D/I, A&O x3, toes mobile Date Time Temp Pulse Resp B/P (MAP) Pulse Ox O2 Delivery O2 Flow Rate FiO2 04/24/17 07:08 37.6 71 17 151/80 (103) 94 Room Air 04/24/17 00:20 Room Air 04/23/17 23:16 36.8 73 16 127/67 (87) 93 Room Air 04/23/17 21:25 72 18 145/76 (99) 92 Room Air 04/23/17 19:30 70 154/75 (101) 94 Room Air 04/23/17 16:29 36.6 70 20 160/73 (102) 97 Nasal Cannula 2.0 04/23/17 16:28 36.6 70 20 160/73 97 2.0 04/23/17 15:25 36.3 66 18 139/80 94 2.0 04/23/17 15:20 Nasal Cannula 04/23/17 14:26 136/68 (90) 04/23/17 14:25 36.5 68 19 115/68 04/23/17 13:55 36.5 65 17 132/68 04/23/17 13:40 36.4 69 18 135/79 96 04/23/17 13:26 36.6 70 20 153/85 04/23/17 13:00 36.9 70 20 145/80 98 2.0 04/23/17 12:00 36.4 62 18 138/65 97 2.0 04/23/17 11:30 36.4 63 18 127/74 96 2.0 04/23/17 11:00 36.4 60 20 146/73 04/23/17 10:46 36.4 60 18 121/66 04/23/17 10:29 36.5 65 20 132/75 04/23/17 09:23 63 137/74 (95) 04/23/17 09:22 98 Laboratory Results 24 Hours: Test 04/24/17 05:46 Hematocrit 26.5 % Hemoglobin 8.6 g/dL Assessment & Plan Assessment: 82 yo male stable POD #2 s/p left TKA, acute blood loss anemia- transfused 2 units yesterday, H/H today 8.6/26.5 Plan: 1. Med management- transfused 2 units PRBCs 2. DVT prophylaxis- ASA, SCDs 3. PT/OT 4. D/C planning- home w/ HH- will see how he progresses with PT today, poss d/ c later today if stable from cardiac standpoint. Discharge Planning Discharge Planning: home with home health DVT Prophylaxis: Alisia Montejo Therapy: Physical Therapy
[2017-04-24] MEDS ORDERED: ONDA8TAB6 PO (07:53)
[2017-04-24] MEDS ORDERED: OXYSR10 PO (07:53)
[2017-04-24] MEDS ORDERED: ACET-24 PO (07:53)
[2017-04-24] MEDS ORDERED: CLC100 PO (07:53)
[2017-04-24] MEDS ORDERED: RXC5 PO (07:53)
[2017-04-24] MEDS: OXYCODONE HCL IR 5 MG TAB (IMMEDIATE RELEASE) PO PRN (08:08)
[2017-04-24 08:49] VITALS: BP 105/60; PULSE 75
[2017-04-24] MEDS: MULTIVITAMIN TAB PO SCH (08:50)
[2017-04-24] MEDS: PANTOprazole SOD 40 MG TAB PO SCH (08:50)
[2017-04-24] MEDS: FoLIC ACID TAB 400 MCG TAB PO SCH (08:51)
[2017-04-24] MEDS: ASPIRIN 81 MG ECTAB PO SCH (08:51)
[2017-04-24] MEDS: CARVEDILOL 25 MG TAB PO SCH (08:52)
[2017-04-24] MEDS: OXYCODONE HCL 10 MG TABCR (OXYCONTIN) PO SCH (08:52)
[2017-04-24] MEDS: DOCUSATE SODIUM 100 MG CAP PO SCH (08:53)
[2017-04-24 09:36] VITALS: BP_SYST 115; BP_SYST 85; BP_DIAS 42; BP_DIAS 59
[2017-04-24 09:56] VITALS: BP 122/64
--- NOTE | 2017-04-24 14:08 | Cardiology Follow-Up ---
Subjective Date of Service: Apr 24, 2017. Pt evaluation today including: conversation w/ patient, physical exam, lab review, review of studies, review of inpatient medication list History of Present Illness This is a very pleasant 82-year-old gentleman who has a history of heart block ( according to him, I don't have much in way of records) for which he required a pacemaker around 2004. He describes that as being 2-1 heart block. He had the pacemaker replaced several years ago, he doesn't remember exactly when. He has had no difficulty with it. He also has a history of coronary artery disease, he does not recall having any symptoms prior to a recommendation to have a nuclear stress test done which showed significant disease and he went on to have catheterization followed by coronary bypass surgery in December 2015. He denies having angina at that time and has had none since. He also has carotid disease and has had a carotid endarterectomy. He is admitted following left knee replacement. Prior to surgery he was maintained on aspirin and clopidogrel, as well as atorvastatin and some other medications for hypertension. These have been restarted. He is having some postoperative knee discomfort, especially with walking, but has been able to go to the bathroom. He was complaining of some shortness of breath with going to the bathroom but feels better now that he is receiving blood. No chest discomfort or palpitations. Social History Smoking Status: Former Smoker History of Alcohol Use: No Review of Systems Respiratory: No cough, No wheezing, No shortness of breath, No dyspnea on exertion Cardiac: No chest pain, No orthopnea, No PND, No edema, No palpitations Minimal knee pain post surgery Medications Argue vascular: Item Value Date Time Clopidogrel 75 mg 04/23/17 2100 Bisulfate HS/PO 04/23/172127 (plAVix TAB) Atorvastatin 40 mg 04/22/17 2100 Calcium HS/PO 04/23/172127 (Lipitor Tab) Doxazosin Mesylate 2 mg 04/22/17 2100 (Cardura Tab) HS/PO 04/23/172126 Aspirin 81 mg 04/22/17 0900 (Ecotrin Tab) BID/PO 04/24/17 0851 Carvedilol 25 mg 04/22/17 0900 (Coreg Tab) BID/PO 04/24/17 0852 Objective Vital Signs Past 12 Hours Date Time Temp Pulse Resp B/P (MAP) Pulse Ox O2 Delivery O2 Flow Rate FiO2 04/24/17 09:36 85/42 (56) 115/59 (77) 04/24/17 08:49 75 105/60 (75) 04/24/17 08:00 Room Air 04/24/17 07:08 37.6 71 17 151/80 (103) 94 Room Air Last Recorded Weight-Kilograms: 77.200 Intake & Output 8-Hour Column 04/24/17 04/25/17 04/25/17 16:00 00:00 08:00 Intake Total 600 ml Output Total 500 ml Balance 100 ml 24-Hour Column 04/25/17 08:00 Intake Total 600 ml Output Total 500 ml Balance 100 ml Physical Exam Constitutional: General Apperance: heathly-appearing Level of Distress: NAD Lungs: Respiratory effort: no dyspnea, good air movement Auscultation: breath sounds normal, no wheezing Cardiovascular: Heart Auscultation: RRR, no murmurs, no rubs, no gallops Peripheral Pulses: Bruits: none appreciated Extremities: no edema The left knee is immobilized following surgery Data Laboratory Results: Last 24 Hours Test 04/24/17 05:46 White Blood Count 4.72 K/uL Red Blood Count 3.00 M/uL Hemoglobin 8.6 g/dL Hematocrit 26.5 % Mean Corpuscular Volume 88.3 fL Mean Corpuscular Hemoglobin 28.7 pg Mean Corpuscular Hemoglobin Concent 32.5 g/dl RDW Standard Deviation 46.6 fL RDW Coefficient of Variation 14.4 % Platelet Count 118 K/uL Mean Platelet Volume 8.5 fL Sodium Level 136 mmol/L Potassium Level 4.5 mmol/L Chloride Level 105 mmol/L Carbon Dioxide Level 26 mmol/L Anion Gap 5.0 mmol/L Blood Urea Nitrogen 24 mg/dl Creatinine 1.10 mg/dl Est Creatinine Clear Calc Drug Dose 56.1 ml/min Estimated GFR () 72.6 Estimated GFR (Non- 62.6 BUN/Creatinine Ratio 21.4 Random Glucose 84 mg/dl Calcium Level 8.5 mg/dl Assessment and Plan #1. Coronary disease: This appears to be clinically stable and he is not having angina. He has had no chest discomfort this admission and has been ambulatory to a certain extent the last several days. #2. Heart block and pacemaker: By his history he had a pacemaker implanted for heart block, that is probably intermittent as his electrocardiogram showed sinus rhythm with intact AV conduction but he did have right bundle branch block. No arrhythmic symptoms. From the cardiovascular standpoint he seems to be doing well and I believe he is stable for discharge. Thank you for allowing me to participate in his care.
[2017-04-24 14:10] VITALS: BP 115/59; PULSE 75; TEMP 37.6; O2SAT 94
--- NOTE | 2017-04-24 16:36 | Discharge Summary ---
Orthopedic Discharge Summary Admission Date/Reason Apr 22, 2017 at 06:50 Left Knee Degenerative Joint Disease. Discharge Date/Disposition Apr 24, 2017 Home with services Diagnosis Principal Diagnosis: left knee osteoarthritis Secondary Diagnoses/Problems: Coronary disease Heart block and pacemaker Procedure(s) Performed Left Total Knee Arthroplasty utilizing [employer] journey 2 nonlocked total knee arthroplasty size 6 femur 6 tibia 11 Татьяна 32 oval patella Consultations Cardiac Consultation: Juan Yuan M.D. Medication Reconciliation New Medications: Ondansetron Hcl (Zofran) 8 Mg Tab 8 MG PO Q8 PRN for Nausea, #20 TAB Acetaminophen (Sb Non-Aspirin Extra Stre) 500 Mg Tab 1000 MG PO Q8H, #126 TAB Docusate Sodium (Docusate Sodium) 100 Mg Cap 100 MG PO BID for 10 Days, #20 CAP Oxycodone HCl (Oxycodone HCl) 5 Mg Tab 5-10 MG PO Q4H PRN for Pain, #60 TAB Oxycodone HCl (Oxycontin) 10 Mg Tabcr 10 MG PO Q12, #20 Continued Medications: Amlodipine (Norvasc) 5 Mg Tab 5 MG PO QAM, TAB Aspirin (Aspirin Ec) 81 Mg Tab 81 MG PO QAM Atorvastatin (Lipitor) 40 Mg Tab 40 MG PO HS, TAB Carvedilol (Coreg) 25 Mg Tab 25 MG PO BID, TAB Clopidogrel (Plavix) 75 Mg Tab 75 MG PO HS, TAB Doxazosin Mesylate (Cardura) 2 Mg Tab 1 TAB PO HS for 90 Days, #90 TAB 3 Refills Levothyroxine Sodium (Levothyroxine Sodium) 25 Mcg Tab 1 TAB PO DAILY for 30 Days, #30 TAB 5 Refills Polysaccharide Iron Complex (Ferrex 150) 150 Mg Cap 150 MG PO HS [Folic Acid] () 400 MCG PO QAM Admission Physical Exam As per Admitting History & Physical. Hospital Course Patient was a same day admission after undergoing a successful left TKA. He tolerated the procedure well. Post-operatively, his activity was progressed and well tolerated. He was transfused 2 units of PRBCs on POD #1 due to acute blood loss anemia. Please refer to daily progress notes and PT notes for complete details. After exam on 04/24/17, patient felt to be stable for discharge home with home health PT. Patient will f/u in the office in 2 weeks for further evaluation including x-rays and incision check, sooner if having any issues or concerns. Below are pertinent labs/studies during their hospital stay: Last Resulted CBC 04/24/17 05:46 Last Resulted BMP 04/24/17 05:46 Last Vital Signs Documentation Date Time Temp Pulse Resp B/P (MAP) Pulse Ox O2 Delivery O2 Flow Rate FiO2 04/24/17 14:10 37.6 75 17 94 Room Air 04/24/17 09:36 85/42 (56) 115/59 (77) 04/23/17 16:29 2.0 Discharge Instructions ACTIVITY RECOMMENDATIONS: SELF CARE INSTRUCTIONS AFTER TOTAL KNEE REPLACEMENT A. You may need to continue a physical therapy program after discharge from the hospital. There are several options available to you. Your doctor will assist you in selecting the best one for you. 1. An out-patient facility 2 to 3 times a week for therapy or home therapy. 2. Continue working on all exercises taught to you in the hospital. Your goals should be to increase bending of your knee to 90 degrees and beyond and to fully straighten your knee. B. You may progress at your own pace from walking with a walker or crutches to a cane; then to no assistive devices. C. Make walking a part of your daily routine. Be up as much as comfortable with rest periods throughout the day. Rest with leg elevation is very important. Use the ice wrap frequently for the first 3-4 weeks. D. There are no restrictions on activities. You may ride in a car, shop, participate in garment tag stringer and all social activities. E. Wear the long elastic stockings (ROBY hose) 20 hours a day for 2 weeks after surgery. They can be removed several times a day for laundering and for a bath. F. You may shower, no tub baths until cleared by your doctor. SPECIAL CARE INSTRUCTIONS: VERY IMPORTANT TO READ AND REVIEW A. There are a few signs you need to watch for after you are home. Call [facility] if you notice any of the followin. Increased severe knee pain. Some pain is expected especially when you exercise. 2. Increased swelling in your leg or knee; pain or swelling of the calf muscle in either lower leg. 3. Any fluid drainage from the incision. 4. Shortness of breath or chest pain. B. Please call [facility] at if you have any concerns or questions about your operation or recovery. The doctor or his nurse will return your call promptly. C. You must take antibiotics before dental work, bladder, bowel or other surgery. Your doctor will provide you with a permanent care to carry describing this precaution. IMPORTANT: * REMEMBER TO TAKE ASPIRIN, 81 MG, TWICE DAILY FOR 4 WEEKS UNLESS OTHERWISE DIRECTED. THIS IS YOUR BLOOD THINNER. * HIGH RISK PATIENTS MAY BE PRESCRIBED A STRONGER BLOOD THINNER. THIS WILL BE PROVIDED AT DISCHARGE. * CALL IF INCREASED PAIN, REDNESS, DRAINAGE OR FEVER GREATER THAT 101. * WEAR ROBY HOSE 20 HOURS PER DAY FOR 2 WEEKS. * DERMABOND Prineo- This is a mesh tape dressing that is covered with glue. It should remain in place until the incision is properly healed, usually 10-14 days. This dressing is designed to naturally slough off. You may trim the excess mesh tape as it peels off. Incision may be briefly wet in a shower. Dry immediately by blotting with a clean, dry towel. Do not bath or swim until instructed by your doctor. Do not scratch, rub, or pick at the dressing. Do not apply any topical ointments or lotions until dressing is completely removed and/or instructed by your doctor. There may be a small piece of suture material at one end of your incision. Do not pull or trim this. If it is bothersome or catching on clothing, you may cover it with a band-aid. FOLLOW UP VISIT: If appointment is not already scheduled: Please call [facility] to make a follow-up appointment for 2 weeks after your surgery at .
== END 2017-04-24 14:45 | disposition home health service (06) | DRG 470 ==
LOC: C.ACU 04:51 → C.3E 06:50 → ENRESERV 09:37
PROVIDERS: ADMIT Orthopaedic Surgery; ATTEND Orthopaedic Surgery
PROC: 0SRU0J9 Replacement of Left Knee Joint, Femoral Surface with Synthetic Substitute, Cemented, Open Approach (ICD-10-PCS; principal; 2017-04-22 07:00)
DX: M17.9 Osteoarthritis of knee, unspecified (principal); D62 Acute posthemorrhagic anemia; I25.10 Atherosclerotic heart disease of native coronary artery without angina pectoris; N40.0 Benign prostatic hyperplasia without lower urinary tract symptoms; J44.9 Chronic obstructive pulmonary disease, unspecified; I10 Essential (primary) hypertension; K21.9 Gastro-esophageal reflux disease without esophagitis; Z95.0 Presence of cardiac pacemaker; Z79.82 Long term (current) use of aspirin; Z82.49 Family history of ischemic heart disease and other diseases of the circulatory system; Z01.812 Encounter for preprocedural laboratory examination